=== PATIENT | female | born 2000 | race Asian ===

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

== ENCOUNTER 2023-08-08 13:38 | Emergency (ER) | payer MEDICAID ==
[~2023-08-08] VITALS: Ht 157.5 cm; Wt 61.4 kg
[2023-08-08 13:46] VITALS: BP 122/67; PULSE 92; RESP 18; TEMP 98.2
[2023-08-08 13:59] LABS: COVID AG,FIA SOURCE NASAL SWAB
[2023-08-08 14:06] LABS: SARS-COV2 (COVID) ANTIGEN,FIA Negative (Negative)
[2023-08-08 14:08] LABS: INFLUENZA TYPE A NEGATIVE FOR TYPE A (NEGATIVE); INFLUENZA TYPE B NEGATIVE FOR TYPE B (NEGATIVE)
== END 2023-08-08 16:36 | disposition home or self-care (01) ==
LOC: EMS 13:38
DX: J06.9 Acute upper respiratory infection, unspecified (principal); Z20.822 Contact with and (suspected) exposure to COVID-19
CPT/HCPCS: 71045; 87804; 99284

== ENCOUNTER 2024-11-07 21:48 | Emergency (ER) | payer MEDICAID, OTHER ==
[2024-11-07 22:05] VITALS: BP 136/89; PULSE 90; RESP 14; TEMP 98.2; O2SAT 100
[2024-11-07 22:15] LABS: COVID AG,FIA SOURCE NASAL SWAB
[2024-11-07 22:37] LABS: INFLUENZA TYPE A NEGATIVE FOR TYPE A (NEGATIVE); INFLUENZA TYPE B NEGATIVE FOR TYPE B (NEGATIVE); SARS-COV2 (COVID) ANTIGEN,FIA Negative (Negative)
== END 2024-11-07 22:56 | disposition left against medical advice (07) ==
LOC: EMS 21:48
DX: R06.02 Shortness of breath (principal); Z20.822 Contact with and (suspected) exposure to COVID-19; Z53.21 Procedure and treatment not carried out due to patient leaving prior to being seen by health care provider
CPT/HCPCS: 87804

== ENCOUNTER 2025-01-25 14:40 | Emergency (ER) | payer OTHER ==
[~2025-01-25] VITALS: Ht 160 cm; Wt 59.1 kg
[2025-01-25 14:43] VITALS: TEMP 98.2
[2025-01-25] MEDS ORDERED: MULT12TA PO (14:45)
[2025-01-25 15:08] LABS: APPEARANCE,URINE CLEAR (CLEAR); BILIRUBIN,URINE NEGATIVE (NEGATIVE); COLOR,URINE LIGHT YELLOW (YELLOW); GLUCOSE, URINE (UA) NEGATIVE (NEGATIVE); KETONES,URINE NEGATIVE (NEGATIVE); LEUKOCYTE ESTERASE ,URINE NEGATIVE (NEGATIVE); NITRATE,URINE NEGATIVE (NEGATIVE); OCCULT BLOOD,URINE NEGATIVE (NEGATIVE); PH,URINE 5.5 (5.0-8.0); PROTEIN,URINE NEGATIVE (NEGATIVE); SPECIFIC GRAVITIY, URINE 1.032 (1.003-1.030); UROBILINOGEN,URINE <=1.0 mg/dL (<=1.0)
[2025-01-25] MEDS: IBUPROFEN 600 MG TABLET PO ONE (20:15)
[2025-01-25] MEDS: ACETAMINOPHEN 500 MG TABLET PO ONE (20:15)
[2025-01-25 20:18] LABS: BASOPHILS % (AUTO) 0.3 % (0.0-2.0); HEMATOCRIT 35.5 % (36-46); HEMOGLOBIN 11.6 g/dL (12.0-16.0); LYMPHOCYTES # (AUTO) 2.4 K/uL (1.0-4.8); LYMPHOCYTES % (AUTO) 30.9 % (22.0-44.0); MEAN CORPUSCULAR HEMOGLOBIN 26.6 pg (26.0-34.0); MEAN CORPUSCULAR HGB CONC 32.6 G/dL (31.0-37.0); MEAN CORPUSCULAR VOLUME 82 fL (80-100); MONOCYTES # (AUTO) 0.8 K/uL (0.1-1.0); MONOCYTES % (AUTO) 9.9 % (2.0-9.0); NEUTROPHILS # (AUTO) 4.4 K/uL (1.8-7.7); NEUTROPHILS % (AUTO) 56.9 % (40.0-70.0); PLATELET COUNT (AUTO) 305 K/uL (150-450); RED BLOOD CELL COUNT(AUTO) 4.35 MIL/uL (4.00-5.20); RED CELL DISTRIBUTION WIDTH 13.5 % (11.5-14.5); WHITE BLOOD COUNT (AUTO) 7.8 K/uL (4.5-11.0)
[2025-01-25 20:22] LABS: ANION GAP 8 mmol/L (8-16); CALCIUM, TOTAL 8.8 mg/dL (8.8-10.5); CARBON DIOXIDE 29 mmol/L (22-29); CHLORIDE 104 mmol/L (98-107); CREATININE 0.61 mg/dL (0.60-1.30); GLOMERULAR FILTR. RATE CALC > 60 mL/min (>60); GLUCOSE,RANDOM 88 mg/dL (70-110); POTASSIUM 4.2 mmol/L (3.5-5.1); SODIUM SERUM 141 mmol/L (136-145); UREA NITROGEN, BLOOD 13 mg/dL (7-18)
[2025-01-25 21:38] VITALS: BP 111/81; PULSE 77; RESP 16; O2SAT 99
[2025-01-25] MEDS ORDERED: ONDA-104 PO (21:54)
[2025-01-25] MEDS ORDERED: ACET-2080 PO (21:54)
[2025-01-25] MEDS ORDERED: IBUP-1554 PO (21:54)
== END 2025-01-25 22:00 | disposition home or self-care (01) ==
LOC: EMS 14:40
DX: N83.201 Unspecified ovarian cyst, right side (principal); R10.2 Pelvic and perineal pain
CPT/HCPCS: 76856; 80048; 81003; 84703; 85025; 99284